=== PATIENT | male | born 1940 | race Caucasian/White ===

== ENCOUNTER → 2024-03-01 12:26 | Outpatient (REF) | payer OTHER, SELFPAY | LOC: RCS 12:26 | PROVIDERS: ATTENDING PHYSICIAN Nuclear Medicine Nuclear Cardiology; FAMILY PHYSICIAN Internal Medicine | DX: R53.82 Chronic fatigue, unspecified (principal); I34.0 Nonrheumatic mitral (valve) insufficiency | CPT/HCPCS: 93306 ==

== ENCOUNTER → 2024-04-21 11:40 | Outpatient (REF) | payer OTHER, SELFPAY | LOC: RAD 11:40 | PROVIDERS: ATTENDING PHYSICIAN Internal Medicine | DX: M79.604 Pain in right leg (principal); M79.605 Pain in left leg; M54.50 Low back pain, unspecified | CPT/HCPCS: 72110 ==